=== PATIENT | female | born 1950 | race Caucasian/White ===

== ENCOUNTER → 2023-11-07 15:29 | Outpatient (REF) | payer MEDICARE, SELFPAY ==
[2023-11-07 16:36] LABS: Urine Albumin Negative (Neg - Trace); Urine Bilirubin Negative (Negative); Urine Character Clear (Clear); Urine Color Yellow; Urine Glucose Negative (Negative); Urine Ketone Negative (Negative); Urine Leukocyte Trace (Negative); Urine Nitrite Negative (Negative); Urine Occult Blood 2+ (Negative); Urine Specific Gravity 1.005 (<1.030); Urine Urobilinogen Negative (Neg - 1+)
[2023-11-07 16:50] LABS: Urine Squamous Cell 0-2 /LPF (Few)
[2023-11-07 16:51] LABS: Urine Bacteria Moderate (Negative); Urine White Cell 21-25 /HPF (0-5)
== END ==
LOC: CLAB 15:29
PROVIDERS: ATTENDING PHYSICIAN Student in an Organized Health Care Education/Training Program
DX: R35.0 Frequency of micturition (principal)
CPT/HCPCS: 81003; 81015; 87086

== ENCOUNTER → 2024-01-18 17:07 | Outpatient (REF) | payer MEDICARE, SELFPAY ==
[2024-01-18 18:24] LABS: Urine Albumin Trace (Neg - Trace); Urine Bilirubin Negative (Negative); Urine Character Slightly Cloudy (Clear); Urine Color Yellow; Urine Glucose Negative (Negative); Urine Ketone Negative (Negative); Urine Leukocyte 2+ (Negative); Urine Nitrite Negative (Negative); Urine Occult Blood 4+ (Negative); Urine Specific Gravity 1.005 (<1.030); Urine Urobilinogen Negative (Neg - 1+); Urine pH 6.5 (5.0-9.0)
[2024-01-18 18:31] LABS: Urine Squamous Cell 0-2 /LPF (Few)
[2024-01-18 18:32] LABS: Urine White Cell >100 /HPF (0-5)
== END ==
LOC: CLAB 17:07
PROVIDERS: ATTENDING PHYSICIAN Student in an Organized Health Care Education/Training Program
DX: N39.0 Urinary tract infection, site not specified (principal); N30.11 Interstitial cystitis (chronic) with hematuria
CPT/HCPCS: 81003; 81015; 87086; 87147; 87186

== ENCOUNTER → 2024-02-26 10:31 | Outpatient (REF) | payer MEDICARE, SELFPAY ==
[2024-02-26 12:02] LABS: % Eosinophils 0.5 % (0-6); % Immature Granulocytes 0.2 % (0-0.5); % Lymphocytes 25.1 % (20.5-51.1); % Monocytes 7.2 % (1.7-9.3); Absolute Lymphocytes 1.1 10^3/uL (1.2-3.4); Absolute Monocytes 0.3 10^3/uL (0.1-0.6); Absolute Neutrophils 2.8 10^3/uL (1.4-6.5); Hematocrit 41.4 % (37.0-47.0); Hemoglobin 13.9 g/dL (12.0-16.0); Mean Corp Hgb Conc. 33.6 g/dL (33.0-37.0); Mean Corpuscular Volume 95.2 fL (81.0-99.0); Mean Platelet Volume 10.8 fL (7.4-10.4); Nucleated Red Blood Cells % 0 %; Platelet Count 292 10^3/uL (130-400); Red Blood Cell Count 4.35 10^6/uL (4.20-5.40); Red Cell Dist. Width 13.7 % (11.5-14.5); White Blood Cell Count 4.2 10^3/uL (4.8-10.8)
[2024-02-26 12:35] LABS: ALT (SGPT) 14 U/L (0-35); AST (SGOT) 26 U/L (14-36); Albumin 4.5 g/dl (3.5-5.0); Alkaline Phosphatase 59 U/L (38-126); Blood Urea Nitrogen 16 mg/dl (7-17); Calcium 10.4 mg/dl (8.4-10.2); Carbon Dioxide 28 mmol/L (22-30); Chloride 100 mmol/L (98-107); Glucose 91 mg/dl (70-99); HDL Cholesterol 98 mg/dl; LDL Cholesterol, Calculated 72 mg/dl; Potassium 4.6 mmol/L (3.5-5.1); Sodium 136 mmol/L (135-145); Total Bilirubin 0.7 mg/dl (0.2-1.3); Total Cholesterol 184 mg/dl (50-199); Total Protein 7.5 g/dl (6.3-8.2); Triglyceride 71 mg/dl (10-149); Very Low Density Lipoprotein 14 mg/dl (0-30); eGFR > 60.00
[2024-02-26 12:57] LABS: Vitamin D, 25-OH*** 30.7 ng/mL (30-80)
[2024-02-26 13:11] LABS: TSH 1.23 uIU/ml (0.47-4.68)
[2024-02-27 12:10] LABS: Intact PTH 103.8 pg/ml (13.6-85.8)
== END ==
LOC: REG 10:31
PROVIDERS: ATTENDING PHYSICIAN Physician Assistant; FAMILY PHYSICIAN Student in an Organized Health Care Education/Training Program; REFERRING PHYSICIAN Nuclear Medicine Nuclear Cardiology
DX: E07.9 Disorder of thyroid, unspecified (principal); E55.9 Vitamin D deficiency, unspecified; M81.0 Age-related osteoporosis without current pathological fracture; R93.1 Abnormal findings on diagnostic imaging of heart and coronary circulation; E78.5 Hyperlipidemia, unspecified; R00.2 Palpitations; Z13.29 Encounter for screening for other suspected endocrine disorder; M54.9 Dorsalgia, unspecified
CPT/HCPCS: 36415; 72072; 72100; 80053; 80061; 82306; 83970; 84443; 85025

== ENCOUNTER → 2024-05-08 10:56 | Outpatient (REF) | payer MEDICARE, SELFPAY ==
[2024-05-08 11:34] LABS: Ionized Calcium 1.21 mMOL/L (1.15-1.33)
[2024-05-08 12:22] LABS: ALT (SGPT) 14 U/L (0-35); AST (SGOT) 24 U/L (14-36); Albumin 4.6 g/dl (3.5-5.0); Alkaline Phosphatase 64 U/L (38-126); Blood Urea Nitrogen 13 mg/dl (7-17); Carbon Dioxide 27 mmol/L (22-30); Chloride 104 mmol/L (98-107); Glucose 92 mg/dl (70-99); Potassium 4.5 mmol/L (3.5-5.1); Sodium 137 mmol/L (135-145); Total Bilirubin 0.6 mg/dl (0.2-1.3); Total Protein 7.5 g/dl (6.3-8.2); eGFR > 60.00
[2024-05-08 12:34] LABS: Urine Calcium 4.2 mg/dl
[2024-05-08 14:21] LABS: 24 Hour Urine Calcium 58.8 mg/day; 24 Hour Urine Total Volume 1400 ml
[2024-05-10 09:40] LABS: Intact PTH 109.8 pg/ml (13.6-85.8)
== END ==
LOC: REG 10:56
PROVIDERS: ATTENDING PHYSICIAN Internal Medicine Endocrinology, Diabetes & Metabolism; FAMILY PHYSICIAN Student in an Organized Health Care Education/Training Program
DX: E83.52 Hypercalcemia (principal); E55.9 Vitamin D deficiency, unspecified; E34.9 Endocrine disorder, unspecified
CPT/HCPCS: 36415; 80053; 81050; 82306; 82330; 82340; 82570; 83970

== ENCOUNTER → 2024-06-04 09:11 | Outpatient (REF) | payer MEDICARE, SELFPAY | LOC: RAD 09:11 | PROVIDERS: ATTENDING PHYSICIAN Internal Medicine Endocrinology, Diabetes & Metabolism | DX: C83.52 Lymphoblastic (diffuse) lymphoma, intrathoracic lymph nodes (principal); E83.52 Hypercalcemia; E34.9 Endocrine disorder, unspecified | CPT/HCPCS: 78071; A9500 ==

== ENCOUNTER → 2024-06-10 09:55 | Outpatient (REF) | payer MEDICARE, SELFPAY ==
[2024-06-10 12:05] LABS: Urine Albumin Trace (Neg - Trace); Urine Bilirubin Negative (Negative); Urine Character Slightly Cloudy (Clear); Urine Color Yellow; Urine Glucose Negative (Negative); Urine Ketone Negative (Negative); Urine Leukocyte 1+ (Negative); Urine Nitrite Negative (Negative); Urine Occult Blood 3+ (Negative); Urine Specific Gravity 1.015 (<1.030); Urine Urobilinogen Negative (Neg - 1+); Urine pH 6.5 (5.0-9.0)
[2024-06-10 12:51] LABS: Urine Bacteria Few (Negative); Urine White Cell 50-60 /HPF (0-5)
== END ==
LOC: RAD 09:55
PROVIDERS: ATTENDING PHYSICIAN Internal Medicine Endocrinology, Diabetes & Metabolism; FAMILY PHYSICIAN Student in an Organized Health Care Education/Training Program
DX: C83.52 Lymphoblastic (diffuse) lymphoma, intrathoracic lymph nodes (principal); E34.9 Endocrine disorder, unspecified; R30.0 Dysuria
CPT/HCPCS: 76536; 81003; 81015; 87086; 87147

== ENCOUNTER → 2024-07-02 12:26 | Outpatient (REF) | payer MEDICARE, SELFPAY | LOC: RAD 12:26 | PROVIDERS: ATTENDING PHYSICIAN Student in an Organized Health Care Education/Training Program | DX: R79.89 Other specified abnormal findings of blood chemistry (principal); N39.0 Urinary tract infection, site not specified; R10.9 Unspecified abdominal pain | CPT/HCPCS: 76770 ==

== ENCOUNTER → 2024-08-08 10:47 | Outpatient (REF) | payer MEDICARE, SELFPAY ==
[2024-08-08 11:19] LABS: Ionized Calcium 1.28 mMOL/L (1.15-1.33)
[2024-08-08 11:56] LABS: ALT (SGPT) 17 U/L (0-35); AST (SGOT) 25 U/L (14-36); Albumin 4.6 g/dl (3.5-5.0); Alkaline Phosphatase 61 U/L (38-126); Blood Urea Nitrogen 19 mg/dl (7-17); Calcium 10.2 mg/dl (8.4-10.2); Carbon Dioxide 31 mmol/L (22-30); Chloride 99 mmol/L (98-107); Glucose 91 mg/dl (70-99); Potassium 4.7 mmol/L (3.5-5.1); Sodium 138 mmol/L (135-145); Total Bilirubin 0.5 mg/dl (0.2-1.3); Total Protein 7.5 g/dl (6.3-8.2); eGFR > 60.00
[2024-08-08 12:13] LABS: Vitamin D, 25-OH*** 29.5 ng/mL (30-80)
[2024-08-09 09:14] LABS: Intact PTH 101.6 pg/ml (13.6-85.8)
== END ==
LOC: REG 10:47
PROVIDERS: ATTENDING PHYSICIAN Internal Medicine Endocrinology, Diabetes & Metabolism; FAMILY PHYSICIAN Student in an Organized Health Care Education/Training Program
DX: E83.52 Hypercalcemia (principal); E55.9 Vitamin D deficiency, unspecified; E34.9 Endocrine disorder, unspecified
CPT/HCPCS: 36415; 80053; 82306; 82330; 83970

== ENCOUNTER → 2024-08-18 14:42 | Outpatient (REF) | payer MEDICARE, SELFPAY ==
[2024-08-18 15:39] LABS: Urine Albumin Trace (Neg - Trace); Urine Bilirubin Negative (Negative); Urine Character Slightly Cloudy (Clear); Urine Color Yellow; Urine Glucose Negative (Negative); Urine Ketone Negative (Negative); Urine Leukocyte 2+ (Negative); Urine Nitrite Negative (Negative); Urine Occult Blood 1+ (Negative); Urine Urobilinogen Negative (Neg - 1+); Urine pH 6.5 (5.0-9.0)
[2024-08-18 16:17] LABS: Urine Bacteria Moderate (Negative); Urine White Cell 16-20 /HPF (0-5)
[2024-08-18 16:18] LABS: Urine Yeast Few (Negative)
== END ==
LOC: REG 14:42
PROVIDERS: ATTENDING PHYSICIAN Student in an Organized Health Care Education/Training Program
DX: R39.9 Unspecified symptoms and signs involving the genitourinary system (principal)
CPT/HCPCS: 81003; 81015; 87077; 87086; 87186

== ENCOUNTER → 2024-09-12 11:04 | Outpatient (REF) | payer MEDICARE, SELFPAY | LOC: HWRCS 11:04 | PROVIDERS: ATTENDING PHYSICIAN Nuclear Medicine Nuclear Cardiology; FAMILY PHYSICIAN Student in an Organized Health Care Education/Training Program | DX: R00.2 Palpitations (principal) | CPT/HCPCS: 93306 ==

== ENCOUNTER → 2024-12-03 11:49 | Outpatient (REF) | payer MEDICARE, SELFPAY ==
[2024-12-03 13:04] LABS: Vitamin D, 25-OH*** 37.4 ng/mL (30-80)
[2024-12-03 13:23] LABS: ALT (SGPT) 16 U/L (0-35); AST (SGOT) 24 U/L (14-36); Albumin 4.8 g/dl (3.5-5.0); Alkaline Phosphatase 69 U/L (38-126); Blood Urea Nitrogen 16 mg/dl (7-17); Carbon Dioxide 29 mmol/L (22-30); Chloride 98 mmol/L (98-107); Glucose 93 mg/dl (70-99); Potassium 4.4 mmol/L (3.5-5.1); Sodium 134 mmol/L (135-145); Total Bilirubin 0.8 mg/dl (0.2-1.3); Total Protein 7.7 g/dl (6.3-8.2); eGFR > 60.00
[2024-12-05 11:51] LABS: Intact PTH 112.2 pg/ml (13.6-85.8)
== END ==
LOC: REG 11:49
PROVIDERS: ATTENDING PHYSICIAN Internal Medicine Endocrinology, Diabetes & Metabolism; FAMILY PHYSICIAN Student in an Organized Health Care Education/Training Program
DX: E83.52 Hypercalcemia (principal); E34.9 Endocrine disorder, unspecified; E55.9 Vitamin D deficiency, unspecified; M81.0 Age-related osteoporosis without current pathological fracture
CPT/HCPCS: 36415; 77080; 77081; 80053; 82306; 82330; 83970

== ENCOUNTER 2025-01-06 06:12 | Day surgery (SDC) | payer MEDICARE, SELFPAY ==
[2024-12-30 14:10] VITALS: BMI 19.3
--- NOTE | 2024-12-31 13:54 | PTCARENOTE ---
Patients 12/30 ECG abnormal- reviewed by Dr. Ortega- no additional interventions required
[2025-01-06] VITALS (13 sets, daily range): BP systolic 172–203; BP diastolic 88–107; BMI 19.3
[2025-01-06] MEDS: NEURONTIN 300 MG PO (09:10)
[2025-01-06] MEDS: NORMOSOL-R/PLASMALYTE-A 1000 IV (09:11)
[2025-01-06] MEDS: HEPARIN 5000 UNITS SC (09:11)
[2025-01-06] MEDS: TYLENOL 1000 MG PO (09:11)
[2025-01-06 10:54] LABS: Turbo PTH 280.2 pg/ml (13.6-85.8)
--- NOTE | 2025-01-06 11:25 | OR.RPT ---
Operative Report
Operative Report
Date of Operation: January 06, 2025
Preoperative Diagnosis: �Parathyroid hyperparathyroidism - E210
Postoperative Diagnosis: Same
Surgeon: Rafi Dhillon M.D.
Operation: Neck exploration, Lef Inferior Parathyroidectomy - [id number]
Anesthesia: GET
Estimated Blood Loss: 3 cc
Drains: None
Specimen: Right Inferior neck nodule, rule out parathyroid adenoma
Complications: �None
Procedure:
The patient was taken to the operating room and placed in the usual supine position. After adequate general endotracheal anesthesia was established, the patient's neck was extended, prepped, and draped in the typical sterile fashion. A 4 cm
transcervical incision was made two fingerbreadths above the sternal notch. The skin incision was made with the #15 blade, and this was taken through the skin into the subcutaneous tissue. The underlying platysma muscle was divided, and subplatysmal
flaps were created superiorly to the thyroid cartilage and inferiorly to the sternal notch. Strap muscles were identified and at the midline.
Attention was turned to the patient's right side of the neck. The right thyroid lobe was mobilized medially. During this process, the right recurrent laryngeal nerve was identified and preserved throughout the surgery. The normal-appearing right
superior and inferior parathyroid glands were identified and preserved.
The attention was turned to the left side of the neck. The left thyroid lobe was mobilized medially. During this process, the left recurrent laryngeal nerve was identified and preserved throughout the surgery. The left lower neck nodule was
identified and noted to be enlarged, excised, and sent to the pathology department, which showed a hypercellular parathyroid gland. The normal-appearing left superior parathyroid gland was identified and preserved. The intraoperative PTH levels
normalized.
After obtaining adequate hemostasis, the strap muscles were reapproximated with #3-0 Vicryl in a running fashion. The platysma muscle was reapproximated with #3-0 Vicryl in an interrupted fashion, and the skin was approximated with #4-0 Monocryl in
a running subcuticular fashion. The Steri-Strips and sterile dressings were placed. The patient tolerated the procedure well. The final instrument, needle, and sponge counts were correct. The patient was extubated and transferred to the PACU.
[2025-01-06 11:44] LABS: Turbo PTH 75.5 pg/ml (13.6-85.8)
== END 2025-01-06 15:08 | disposition home or self-care (01) ==
LOC: SDS 06:12
PROVIDERS: ATTENDING PHYSICIAN Surgery; FAMILY PHYSICIAN Student in an Organized Health Care Education/Training Program
DX: D35.1 Benign neoplasm of parathyroid gland (principal); E21.0 Primary hyperparathyroidism
CPT/HCPCS: 60500; 88305; 88332; 83970; 88331

== ENCOUNTER → 2025-01-15 11:16 | Outpatient (REF) | payer MEDICARE, SELFPAY ==
[2025-01-15 12:29] LABS: Urine Albumin Negative (Neg - Trace); Urine Bilirubin Negative (Negative); Urine Character Slightly Cloudy (Clear); Urine Color Yellow; Urine Glucose Negative (Negative); Urine Ketone Negative (Negative); Urine Leukocyte 3+ (Negative); Urine Nitrite Positive (Negative); Urine Occult Blood 4+ (Negative); Urine Urobilinogen Negative (Neg - 1+)
[2025-01-15 13:03] LABS: Urine Urothelial Cell 0-2 /LPF (FEW)
[2025-01-15 13:04] LABS: Urine Bacteria Many (Negative); Urine Red Blood Cell 16-20 /HPF (0-2); Urine White Cell 50-60 /HPF (0-5)
== END ==
LOC: REG 11:16
PROVIDERS: ATTENDING PHYSICIAN Urology; FAMILY PHYSICIAN Student in an Organized Health Care Education/Training Program
DX: N30.10 Interstitial cystitis (chronic) without hematuria (principal); M62.89 Other specified disorders of muscle; R31.29 Other microscopic hematuria
CPT/HCPCS: 81003; 81015; 87086; 87147; 87186

== ENCOUNTER → 2025-02-23 11:20 | Outpatient (REF) | payer MEDICARE, SELFPAY ==
[2025-02-23 12:27] LABS: Ionized Calcium 1.17 mMOL/L (1.15-1.33)
[2025-02-23 13:24] LABS: Calcium 9.2 mg/dl (8.4-10.2)
[2025-02-23 13:58] LABS: Intact PTH 116.2 pg/ml (13.6-85.8)
== END ==
LOC: REG 11:20
PROVIDERS: ATTENDING PHYSICIAN Internal Medicine Endocrinology, Diabetes & Metabolism; FAMILY PHYSICIAN Student in an Organized Health Care Education/Training Program; OTHER PHYSICIAN Surgery
DX: E83.52 Hypercalcemia (principal)
CPT/HCPCS: 36415; 82330; 83970

== ENCOUNTER → 2025-05-13 11:47 | Outpatient (REF) | payer MEDICARE, SELFPAY ==
[2025-05-13 12:42] LABS: Hematocrit 38.3 % (37.0-47.0); Hemoglobin 12.9 g/dL (12.0-16.0); Mean Corp Hgb Conc. 33.7 g/dL (33.0-37.0); Mean Corpuscular Volume 93.9 fL (81.0-99.0); Nucleated Red Blood Cells % 0 %; Platelet Count 274 10^3/uL (130-400); Red Cell Dist. Width 13.2 % (11.5-14.5)
[2025-05-13 14:13] LABS: ALT (SGPT) 13 U/L (0-35); AST (SGOT) 21 U/L (14-36); Albumin 4.5 g/dl (3.5-5.0); Alkaline Phosphatase 56 U/L (38-126); Blood Urea Nitrogen 18 mg/dl (7-17); Calcium 9.4 mg/dl (8.4-10.2); Carbon Dioxide 29 mmol/L (22-30); Chloride 101 mmol/L (98-107); Glucose 85 mg/dl (70-99); HDL Cholesterol 79 mg/dl; LDL Cholesterol, Calculated 90 mg/dl; Potassium 4.4 mmol/L (3.5-5.1); Sodium 136 mmol/L (135-145); Total Protein 7.3 g/dl (6.3-8.2); Very Low Density Lipoprotein 12 mg/dl (0-30); eGFR > 60.00
[2025-05-13 14:31] LABS: Vitamin D, 25-OH*** 35.3 ng/mL (30-80)
== END ==
LOC: REG 11:47
PROVIDERS: ATTENDING PHYSICIAN Student in an Organized Health Care Education/Training Program
DX: R79.89 Other specified abnormal findings of blood chemistry (principal); M81.0 Age-related osteoporosis without current pathological fracture; Z00.00 Encounter for general adult medical examination without abnormal findings; E78.5 Hyperlipidemia, unspecified; N39.0 Urinary tract infection, site not specified
CPT/HCPCS: 36415; 80053; 80061; 82306; 84443; 85025

== ENCOUNTER → 2025-07-21 10:35 | Outpatient (REF) | payer MEDICARE, SELFPAY ==
[2025-07-21 12:25] LABS: ALT (SGPT) 15 U/L (0-35); AST (SGOT) 23 U/L (14-36); Albumin 4.6 g/dl (3.5-5.0); Alkaline Phosphatase 59 U/L (38-126); Blood Urea Nitrogen 12 mg/dl (7-17); Calcium 9.3 mg/dl (8.4-10.2); Carbon Dioxide 31 mmol/L (22-30); Chloride 102 mmol/L (98-107); Glucose 90 mg/dl (70-99); Potassium 4.6 mmol/L (3.5-5.1); Sodium 137 mmol/L (135-145); Total Protein 7.5 g/dl (6.3-8.2); eGFR > 60.00
== END ==
LOC: REG 10:35
PROVIDERS: ATTENDING PHYSICIAN Student in an Organized Health Care Education/Training Program; OTHER PHYSICIAN Internal Medicine Endocrinology, Diabetes & Metabolism
DX: M54.6 Pain in thoracic spine (principal); E83.52 Hypercalcemia; E34.9 Endocrine disorder, unspecified; E55.9 Vitamin D deficiency, unspecified
CPT/HCPCS: 36415; 72072; 80053

== ENCOUNTER 2025-08-19 13:26 | Outpatient (RCR) | payer MEDICARE, SELFPAY ==
[2025-08-19 13:45] VITALS: BP 179/72
[2025-08-19] MEDS: RECLAST 100 IV (14:16)
[2025-08-19 15:15] VITALS: BP 159/83
== END 2025-08-20 10:00 | disposition home or self-care (01) ==
LOC: OID 13:26
PROVIDERS: ATTENDING PHYSICIAN Internal Medicine Endocrinology, Diabetes & Metabolism; FAMILY PHYSICIAN Student in an Organized Health Care Education/Training Program
DX: M81.0 Age-related osteoporosis without current pathological fracture (principal)
CPT/HCPCS: 96365; J3489